=== PATIENT | male | born 1965 ===

== ENCOUNTER 2019-02-06 08:00 | Outpatient (CLI) | payer SELFPAY ==
[2019-02-06 09:06] LABS: HEMOGLOBIN A1C 7.6 % (4.5-6.2)
[2019-02-06 09:17] LABS: CHOL/HDL RATIO 6.97 (0.00-4.99)
== END 2019-02-06 23:59 | disposition home or self-care (01) ==
LOC: HW HEART 08:00
DX: Z13.6 Encounter for screening for cardiovascular disorders (principal)
CPT/HCPCS: 36415

== ENCOUNTER 2020-06-03 07:21 | Outpatient (CLI) | payer SELFPAY ==
[2020-06-03 11:47] LABS: HEMOGLOBIN A1C 7.4 % (4.5-6.2)
[2020-06-03 12:07] LABS: CHOL/HDL RATIO 6.86 (0.00-4.99)
== END 2020-06-03 23:59 | disposition home or self-care (01) ==
LOC: HW HEART 07:21
DX: Z13.6 Encounter for screening for cardiovascular disorders (principal)
CPT/HCPCS: 36415; G0438